=== PATIENT | female | born 1965 | race Caucasian/White ===

== ENCOUNTER 2020-06-05 10:13 | Emergency (ER) | payer SELFPAY ==
[~2020-06-05] VITALS: Ht 149 cm; Wt 84.0 kg
[2020-06-05] MEDS ORDERED: amLODIPine 5 MG (NORVASC) TAB PO ONE (10:30)
[2020-06-05 10:49] LABS: BILIRUBIN,URINE NEGATIVE (NEGATIVE); CLARITY,URINE CLEAR; COLOR,URINE YELLOW; GLUCOSE, URINE (UA) NEGATIVE (NEGATIVE); KETONES,URINE NEGATIVE (NEGATIVE); LEUKOCYTE ESTERASE ,URINE NEGATIVE (NEGATIVE); NITRITE,URINE NEGATIVE (NEGATIVE); PROTEIN,URINE NEGATIVE (NEGATIVE)
[2020-06-05 10:56] LABS: BACTERIA,URINE TRACE /HPF; SQUAMOUS EPITHELIAL CELL,UR RARE /HPF
[2020-06-05 11:08] LABS: BASOPHILS % (AUTO) 0 % (0-10); EOSINOPHILS # (AUTO) 0.1 10^3/uL (0.0-0.3); EOSINOPHILS % (AUTO) 1 % (0-10); HEMATOCRIT 44 % (35-52); HEMOGLOBIN 14.5 g/dL (11.5-16.0); LYMPHOCYTES # (AUTO) 1.2 10^3/uL (1.0-4.0); LYMPHOCYTES % (AUTO) 17 % (12-44); MEAN CORPUSCULAR HEMOGLOBIN 30 pg (25-34); MEAN CORPUSCULAR HGB CONC 33 g/dL (32-36); MEAN CORPUSCULAR VOLUME 90 fL (80-99); MEAN PLATELET VOLUME 9.3 fL (9.0-12.2); MONOCYTES # (AUTO) 0.4 10^3/uL (0.0-1.0); MONOCYTES % (AUTO) 5 % (0-12); NEUTROPHILS # (AUTO) 5.5 10^3/uL (1.8-7.8); NEUTROPHILS % (AUTO) 77 % (42-75); PLATELET COUNT 195 10^3/uL (130-400); WHITE BLOOD COUNT 7.1 10^3/uL (4.3-11.0)
--- NOTE | 2020-06-05 11:13 | ED General ---
General Chief Complaint: Cardiac/General Problems Stated Complaint: NOT FEELING WELL Nursing Triage Note: ARRIVED VIA EMS FROM HOME WITH COMPLAINTS OF HYPERTENSION AND ANXIETY Nursing Sepsis Screen: No Definite Risk Source of Information: Patient, EMS Exam Limitations: No Limitations History of Present Illness Date Seen by Provider: Jun 05, 2020 Time Seen by Provider: 10:20 Initial Comments Here with report of a variety of complaints but mostly related to blood pressure elevated and anxiousness. Comes from home. Called EMS with feelings of jitteriness and not feeling well. This has been going on over the last week. Has known hypertension and was on medicine but ran out of that after she moved here 6 months ago. She started seeing [facility] and was started on an unknown medicine that also made her feel bad so she did not take that. She has another appointment but has not restarted a new medicine. Blood pressure was elevated. Denies chest pain or breathing problems other than when she is anxious she states that she is breathing a little faster. Denies nausea, vomiting, diarrhea or dysuria. Timing/Duration: 1 Week, Changing Over Time Severity: Moderate Associated Systoms: No Cough, No Fever/Chills, No Nausea/Vomiting, No Weakness Allergies and Home Medications Allergies Coded Allergies: oxycodone (Verified Allergy, Unknown, 06/05/20) topiramate (Verified Allergy, Unknown, 06/05/20) Patient Home Medication List Home Medication List Reviewed: Yes Review of Systems Review of Systems Constitutional: see HPI; No chills, No fever EENTM: No nose congestion, No throat pain Respiratory: see HPI; No cough, No wheezing Cardiovascular: No chest pain, No edema Gastrointestinal: No abdominal pain, No nausea, No vomiting Genitourinary: no symptoms reported Musculoskeletal: no symptoms reported Psychiatric/Neurological: Anxiety; Denies Headache All Other Systems Reviewed Negative Unless Noted: Yes Past Kuoezfl-Wqtobq-Noompx Hx Past Med/Social Hx: Reviewed Nursing Past Med/Soc Hx Patient Social History Alcohol Use: Denies Use Recreational Drug Use: No Smoking Status: Former Smoker Recent Foreign Travel: No Contact w/Someone Who Travel: No Recent Infectious Disease Expo: No Recent Hopitalizations: No Seasonal Allergies Seasonal Allergies: No Past Medical History Surgeries: Yes Abdominal, Hysterectomy, Orthopedic Respiratory: No Cardiac: Yes Hypertension Neurological: No Genitourinary: No Gastrointestinal: No Musculoskeletal: No Endocrine: No HEENT: No Cancer: No Psychosocial: No Integumentary: No Blood Disorders: No Family Medical History Reviewed Nursing Family Hx Physical Exam Vital Signs Vital Signs - First Documented 06/05/20 10:15 Temp 36.3 Pulse 90 Resp 16 B/P (MAP) 205/109 (141) Capillary Refill : Less Than 3 Seconds Height, Weight, BMI Height: '" Weight: lbs. oz. kg; 37.00 BMI Method: General Appearance: No Apparent Distress, WD/WN HEENT: PERRL/EOMI, Pharynx Normal Neck: Non Tender, Supple Respiratory: Lungs Clear, Normal Breath Sounds Cardiovascular: Regular Rate, Rhythm, No Murmur Gastrointestinal: Non Tender, Soft Back: Normal Inspection, No CVA Tenderness, No Vertebral Tenderness Extremity: Normal Range of Motion, Non Tender Neurologic/Psychiatric: Alert, Oriented x3 Skin: Normal Color, Warm/Dry Progress/Results/Core Measures Suspected Sepsis Recent Fever Within 48 Hours: No Infection Criteria Present: None New/Unexplained Altered Menta: No Sepsis Screen: No Definite Risk SIRS Temperature: Pulse: 90 Respiratory Rate: 16 Laboratory Tests 06/05/20 11:04: White Blood Count 7.1 Blood Pressure 205 /109 Mean: 141 Laboratory Tests 06/05/20 11:04: Creatinine 0.81, Platelet Count 195, Total Bilirubin 0.3 Results/Orders Lab Results Laboratory Tests Test 06/05/20 10:43 06/05/20 11:04 Range/Units Urine Color YELLOW Urine Clarity CLEAR Urine pH 6.0 5-9 Urine Specific [place] 1.010 L 1.016-1.022 Urine Protein NEGATIVE NEGATIVE Urine Glucose (UA) NEGATIVE NEGATIVE Urine Ketones NEGATIVE NEGATIVE Urine Nitrite NEGATIVE NEGATIVE Urine Bilirubin NEGATIVE NEGATIVE Urine Urobilinogen 0.2 < = 1.0 MG/DL Urine Leukocyte Esterase NEGATIVE NEGATIVE Urine RBC (Auto) NEGATIVE NEGATIVE Urine RBC NONE /HPF Urine WBC NONE /HPF Urine Squamous Epithelial Cells RARE /HPF Urine Crystals NONE /LPF Urine Bacteria TRACE /HPF Urine Casts NONE /LPF Urine Mucus NEGATIVE /LPF Urine Culture Indicated NO White Blood Count 7.1 4.3-11.0 10^3/uL Red Blood Count 4.90 3.80-5.11 10^6/uL Hemoglobin 14.5 11.5-16.0 g/dL Hematocrit 44 35-52 % Mean Corpuscular Volume 90 80-99 fL Mean Corpuscular Hemoglobin 30 25-34 pg Mean Corpuscular Hemoglobin Concent 33 32-36 g/dL Red Cell Distribution Width 13.3 10.0-14.5 % Platelet Count 195 130-400 10^3/uL Mean Platelet Volume 9.3 9.0-12.2 fL Immature Granulocyte % (Auto) 0 % Neutrophils (%) (Auto) 77 H 42-75 % Lymphocytes (%) (Auto) 17 12-44 % Monocytes (%) (Auto) 5 0-12 % Eosinophils (%) (Auto) 1 0-10 % Basophils (%) (Auto) 0 0-10 % Neutrophils # (Auto) 5.5 1.8-7.8 10^3/uL Lymphocytes # (Auto) 1.2 1.0-4.0 10^3/uL Monocytes # (Auto) 0.4 0.0-1.0 10^3/uL Eosinophils # (Auto) 0.1 0.0-0.3 10^3/uL Basophils # (Auto) 0.0 0.0-0.1 10^3/uL Immature Granulocyte # (Auto) 0.0 0.0-0.1 10^3/uL Sodium Level 142 135-145 MMOL/L Potassium Level 4.3 3.6-5.0 MMOL/L Chloride Level 107 98-107 MMOL/L Carbon Dioxide Level 24 21-32 MMOL/L Anion Gap 11 5-14 MMOL/L Blood Urea Nitrogen 13 7-18 MG/DL Creatinine 0.81 0.60-1.30 MG/DL Estimat Glomerular Filtration Rate > 60 BUN/Creatinine Ratio 16 Glucose Level 104 70-105 MG/DL Calcium Level 9.4 8.5-10.1 MG/DL Corrected Calcium 9.3 8.5-10.1 MG/DL Total Bilirubin 0.3 0.1-1.0 MG/DL Aspartate Amino Transf (AST/SGOT) 15 5-34 U/L Alanine Aminotransferase (ALT/SGPT) 21 0-55 U/L Alkaline Phosphatase 93 40-136 U/L C-Reactive Protein High Sensitivity 0.11 0.00-0.50 MG/DL Total Protein 6.9 6.4-8.2 GM/DL Albumin 4.1 3.2-4.5 GM/DL My Orders Orders - JULY LANGLEY MD Cbc With Automated Diff (06/05/20 10:26) Comprehensive Metabolic Panel (06/05/20 10:26) Hs C Reactive Protein (06/05/20 10:26) Ua Culture If Indicated (06/05/20 10:26) Ekg Tracing (06/05/20 10:26) Amlodipine Tablet (Norvasc Tablet) (06/05/20 10:30) Medications Given in ED Current Medications Medications Dose Ordered Sig/Nani Route Start Time Stop Time Status Last Admin Dose Admin Amlodipine Besylate 10 mg ONCE ONCE PO 06/05/20 10:30 06/05/20 10:31 DC 06/05/20 10:32 10 MG Vital Signs/I&O 06/05/20 10:15 Temp 36.3 Pulse 90 Resp 16 B/P (MAP) 205/109 (141) Capillary Refill : Less Than 3 Seconds Blood Pressure Mean: 141 Progress Note : Progress Note Seen and evaluated. Amlodipine 10 mg p.o., labs and EKG ordered. Monitor patient. 1214: Blood pressure 150s over 90s and patient feeling much better. No significant abnormality on labs. Discharged home with return precautions. Patient verbalized understanding of instructions and agreement with plan. ECG Initial ECG Impression Date: Jun 05, 2020 Initial ECG Impression Time: 10:34 Initial ECG Rate: 85 Initial ECG Rhythm: Normal Sinus Comment Sinus rhythm with left atrial abnormality. No evidence of ST elevation TN. Normal axis. No previous available for comparison. Interpreted by me. Departure Impression Primary Impression: Hypertension, uncontrolled Disposition: 01 HOME, SELF-CARE Condition: Improved Departure-Patient Inst. Decision time for Depature: 12:15 Patient Instructions: High Blood Pressure (DC) Add. Discharge Instructions: All discharge instructions reviewed with patient and/or family. Voiced understanding. Take medications as directed. Follow-up with your doctor in a few days for recheck. Return for worse pain, fever, vomiting, weakness, breathing problems or other concerns as needed. I have written you a 1 month supply of the medication that you may take but you will need to discuss this with your doctor to determine further blood pressure medication regimen. Scripts Amlodipine Besylate (Amlodipine Besylate) 10 Mg Tablet 10 MG PO DAILY for 30 Days, #30 TAB 0 Refills Prov: JULY LANGLEY MD 06/05/20 Copy Copies To 1: TAYA GUILLERMO MD, TIMOTHY D MD Jun 05, 2020 11:13
[2020-06-05 11:27] LABS: ALBUMIN 4.1 GM/DL (3.2-4.5); CHLORIDE 107 MMOL/L (98-107); POTASSIUM 4.3 MMOL/L (3.6-5.0); SODIUM 142 MMOL/L (135-145)
[2020-06-05 11:28] LABS: CALCIUM 9.4 MG/DL (8.5-10.1)
[2020-06-05 11:29] LABS: GLUCOSE 104 MG/DL (70-105)
[2020-06-05 11:30] LABS: TOTAL PROTEIN 6.9 GM/DL (6.4-8.2)
[2020-06-05 11:31] LABS: BILIRUBIN,TOTAL 0.3 MG/DL (0.1-1.0); CARBON DIOXIDE 24 MMOL/L (21-32)
[2020-06-05 11:33] LABS: ALKALINE PHOSPHATASE 93 U/L (40-136); CREATININE SERUM 0.81 MG/DL (0.60-1.30); GFR ESTIMATED > 60
[2020-06-05 11:34] LABS: BUN/CREATININE RATIO 16
[2020-06-05 11:36] LABS: ALANINE AMINOTRANSFERASE 21 U/L (0-55)
[2020-06-05] MEDS ORDERED: AMLO-251 PO (12:17)
[2020-06-05 12:24] VITALS: BP 159/93
== END 2020-06-05 12:24 | disposition home or self-care (01) ==
LOC: ER 10:16
DX: I10 Essential (primary) hypertension (principal); F41.9 Anxiety disorder, unspecified; Z87.891 Personal history of nicotine dependence; Z88.5 Allergy status to narcotic agent; Z88.8 Allergy status to other drugs, medicaments and biological substances
CPT/HCPCS: 36415; 80053; 81000; 85025; 86141

== ENCOUNTER 2021-03-06 08:20 | Emergency (ER) | payer SELFPAY ==
[~2021-03-06] VITALS: Ht 149 cm; Wt 88.4 kg
[~2021-03-06 08:20] MED LIST: AMLO-251 PO
--- OUTSIDE RECORDS SUMMARY | 2021-03-06 08:25 | XMS REPORT | Clinical Summary ---
Author Author [facility] Organization [facility] Address Unknown Phone Unavailable Care Team Providers Care Baker Pastry Name Role Phone Alexandria Farmer MD PCP Allergies Comments Active Allergy Reactions Severity Noted Date Topiramate Itching Low 01/31/2018 Medications End Date Status Medication Sig Dispensed Refills Start Date Active phentermine (ADIPEX-P) Take 1 tablet 30 tablet 0 0 37.5 mg tablet (37.5 mg 9 total) by mouth every morning before breakfast. Active multivit/iron/FA/K/herb Take by 0 no.244 (ALIVE WOMEN'S mouth. ENERGY ORAL) Active chlorthalidone (HYGROTON) Take 1 tablet 90 tablet 1 25 MG tablet (25 mg total) 9 by mouth daily. Active buPROPion (WELLBUTRIN XL) Take 1 tablet 90 tablet 0 150 MG XL 24 hr (150 mg 9 tabletIndications: major total) by depressive disorder mouth every morning. Active potassium chloride Take 1 tablet 90 tablet 3 04/08 (K-DUR,KLOR-CON) 20 MEQ (20 mEq 9 tablet total) by mouth daily. Active aspirin/caffeine (JOSE Take by 0 BACK AND BODY ORAL) mouth. Active Problems Problem Noted Date Essential hypertension 03/29/2019 Last Assessment & Plan: Formatting of this note might be differ ent from the original. Not controlled Recheck was also abnormal Start chlorthalidone Pure hypercholesterolemia 03/26/2018 Degenerative cervical disc 02/02/2018 Overview: Formatting of this note might be differ ent from the original. MRI 10/2017 C5-7 Class 3 severe obesity due to excess calories without serious comorbidity 01/31/2018 in adult Overview: Formatting of this note might be differ ent from the original. Tried phenteramine and topamax L ast Assessment & Plan: Formatting of this note might be differ ent from the original. Will restart wellbutrin Counseled on TRF Thyroid disease 01/31/2018 Overview: Formatting of this note might be differ ent from the original. Last TSH 3 11/2017 L ast Assessment & Plan: Formatting of this note might be differ ent from the original. Obtain previous labs and recheck Myalgia 01/31/2018 Last Assessment & Plan: Formatting of this note might be differ ent from the original. Will hopefully find some relief with lo sing weight and with the naltrexone Family History Medical History Relation Name Comments Hypertension Father Dementia Mother Diabetes Paternal Aunt Relation Name Status Comments Daughter Alive Father Alive Mother Alive Paternal Aunt Son twins Alive Son twins Alive Social History Date Tobacco Use Types Packs/Day Years Used Quit: 2005 Former Smoker Smokeless Tobacco: Never Used Comments Alcohol Use Standard Drinks/Week Yes 2 (1 standard drink = 0.6 o z pure alcohol) Sex Assigned at Date Recorded Not on file Last Filed Vital Signs Reading Time Taken Comments Vital Sign 154/99 04/12/2019 1:46 PM CDT Blood Pressure 83 04/12/2019 12:19 PM CDT Pulse 37.1 C (98.7 F) 04/12/2019 12:19 PM CDT Temperature 16 04/12/2019 12:19 PM CDT Respiratory Rate 97% 04/12/2019 1:02 PM CDT Oxygen Saturation - - Inhaled Oxygen Concentration 92.5 kg (204 lb) 04/12/2019 12:19 PM CDT Weight 149.9 cm (4' 11") 04/12/2019 12:19 PM CDT Height 41.2 04/12/2019 12:19 PM CDT Body Mass Index Plan of Treatment Health Maintenance Due Date Last Done Comments Td/Tdap# 1965 COVID-19 Vaccine (1) 1978 Colorectal Screening via 02/05/2016 Colonoscopy Zoster Vaccine# (1 of 2) 02/05/2016 Mammogram Screening 11/11/2019 11/10/2017 Influenza Vaccine (#1) 2021 Pneumococcal Vaccine: Aged Out No longer eligib le based on patient's age to Pediatrics (0 to 5 Years) complete this topic and At-Risk Patients (6 to 64 Years) Results Not on filefrom Last 3 Months Insurance Type Payer Benefit Subscriber ID Effective Phone Address Plan / Dates Group [employer] [id number] borja 12 Arabella Rain Personal/F Self [id number] [place] (Home) [place] [id number] 12 Arabella Rain Personal/F Self [address] [place] (Home) [place] [id number] 12 Advance Directives For more information, please contact: [phone] Patient Marketing Mgr Explanation Type Date Recorded Advance Directives and Living Will Power of Broadcast Chief Engineer Health Care Directive
--- OUTSIDE RECORDS SUMMARY | 2021-03-06 08:25 | XMS REPORT | Clinical Summary ---
Author Author [facility] Organization [facility] Address Unknown Phone Unavailable Care Team Providers Care Drafter Commercial Name Role Phone PCP Unavailable Source Comments [facility] (Labor and Delivery) documents do not appear in the [facility] Allergies Not on File Medications Please verify current medications with patient. Not on file Active Problems Not on file Social History Date Tobacco Use Types Packs/Day Years Used Never Assessed Sex Assigned at Date Recorded Not on file Last Filed Vital Signs Not on file Plan of Treatment Health Maintenance Due Date Last Done Comments CT Colonography 1966 Colon cancer: DNA-based 1966 stool test (Cologuard) HPV/Cotest 1966 Sigmoidoscopy 1966 gFOBT or FIT 1966 COVID-19 Vaccine (1) 1978 Cervical Cancer Screening 1987 Pap Smear 1987 Colonoscopy 02/05/2016 Colorectal Cancer 02/05/2016 Screening Mammogram 02/05/2016 Influenza Vaccine (#1) 2021 Pneumococcal Vaccine: 65+ 2031 Years (1 of 1 - PPSV23) HPV Vaccine Aged Out No longer eligible based on patient's age to complete this topic Pneumococcal Vaccine: Aged Out No longer eligib le based on patient's age to Pediatrics (0 to 5 Years) complete this topic and At-Risk Patients (6 to 64 Years) Results Not on filefrom Last 3 Months
--- NOTE | 2021-03-06 08:37 | ED General ---
General Chief Complaint: Dizziness/Syncope Stated Complaint: DIZZINESS,LOC Source of Information: Patient Exam Limitations: No Limitations History of Present Illness Date Seen by Provider: Mar 06, 2021 Time Seen by Provider: 08:45 Initial Comments Patient is a 56-year-old female who presents to the emergency department with a chief complaint of dizziness and a syncopal episode this morning. Patient states she got up, got in the shower and felt a little bit "dizzy". She states she got out of the shower and sat down on the couch, she was getting up to walk into the bedroom when the next thing she knew she states she was waking up on the floor. Her significant other is at the bedside and states that she did not tremor or shake, she was not confused after the syncopal episode. She was able to get up and continue to get dressed and come into the emergency room for further evaluation. Patient states that she might of felt a little bit of palpitations just prior to her syncopal event. She did not have a headache. She was not nauseous. She has not had episodes similar to this in the past. No recent illnesses such as fevers, chills, cough or congestion. No nausea vomiting or diarrheal illness. She is status post hysterectomy. Takes medications for blood pressure. Is not a diabetic. States that she feels generally "weak" at the moment. Otherwise back to normal. Covid vaccinated no sick contacts. All other review of systems reviewed and negative except as stated. Timing/Duration: 1 Hour Associated Systoms: Syncope Allergies and Home Medications Allergies Coded Allergies: oxycodone (Verified Allergy, Unknown, 06/05/20) topiramate (Verified Allergy, Unknown, 06/05/20) Patient Home Medication List Home Medication List Reviewed: Yes Amlodipine Besylate (Amlodipine Besylate) 10 Mg Tablet, 10 MG PO DAILY Prescribed by: JULY LANGLEY on 06/05/20 1217 Review of Systems Review of Systems Constitutional: see HPI, malaise EENTM: no symptoms reported Respiratory: no symptoms reported Gastrointestinal: no symptoms reported Genitourinary: no symptoms reported : No Musculoskeletal: no symptoms reported Skin: no symptoms reported Psychiatric/Neurological: Other (Dizziness,) All Other Systems Reviewed Negative Unless Noted: Yes Past Mjbaqso-Zvnusu-Zwauvd Hx Seasonal Allergies Seasonal Allergies: No Past Medical History Surgeries: Yes Abdominal, Hysterectomy, Orthopedic Respiratory: No Cardiac: Yes Hypertension Neurological: No Genitourinary: No Gastrointestinal: No Musculoskeletal: No Endocrine: No HEENT: No Cancer: No Psychosocial: No Integumentary: No Blood Disorders: No Physical Exam Vital Signs Vital Signs - First Documented 03/06/21 08:36 Temp 36.8 Pulse 75 Resp 18 B/P (MAP) 153/92 (112) Pulse Ox 98 Capillary Refill : Height, Weight, BMI Height: '" Weight: lbs. oz. kg; 37.00 BMI Method: General Appearance: No Apparent Distress, WD/WN Eyes: Bilateral Eye Normal Inspection, Bilateral Eye PERRL, Bilateral Eye EOMI, Bilateral Eye Other (Patient has nystagmus at all extremes of visual gaze except for inferiorly.) HEENT: TMs Normal (TMs occluded by cerumen bilaterally), Normal ENT Inspection, Pharynx Normal Neck: Normal Inspection, Non Tender, Supple Respiratory: Lungs Clear, Normal Breath Sounds, No Accessory Muscle Use, No Respiratory Distress Cardiovascular: Regular Rate, Rhythm, Normal Peripheral Pulses Gastrointestinal: Non Tender Extremity: Normal Capillary Refill, Normal Inspection, Normal Range of Motion, Non Tender, No Calf Tenderness, No Pedal Edema Neurologic/Psychiatric: Alert, Oriented x3, No Motor/Sensory Deficits, Normal Mood/Affect, cardiovascular physician assistant II-XII Norm as Tested Skin: Normal Color, Warm/Dry Progress/Results/Core Measures Suspected Sepsis SIRS Temperature: Pulse: Respiratory Rate: Blood Pressure / Mean: Results/Orders Lab Results Laboratory Tests Test 03/06/21 08:38 Range/Units Glucometer 110 70-110 MG/DL Vital Signs/I&O 03/06/21 08:36 Temp 36.8 Pulse 75 Resp 18 B/P (MAP) 153/92 (112) Pulse Ox 98 Capillary Refill : ECG Initial ECG Impression Date: Mar 06, 2021 Initial ECG Impression Time: 08:35 Initial ECG Rate: 82 Initial ECG Rhythm: Normal Sinus Initial ECG Intervals: Normal Initial ECG Impression: Normal Departure Impression Primary Impression: Syncope Qualified Codes: R55 - Syncope and collapse Additional Impression: Hypertension Qualified Codes: I10 - Essential (primary) hypertension Disposition: 01 HOME, SELF-CARE Condition: Stable Departure-Patient Inst. Decision time for Depature: 08:59 Referrals: TAYA GUILLERMO MD (PCP/Family) Primary Care Physician Patient Instructions: Syncope (Fainting) (DC) Add. Discharge Instructions: Continue to take your daily blood pressure medicines as prescribed Drink plenty of fluids to stay well-hydrated. Monitor yourself for any further symptoms. Follow-up with your primary care doctor as scheduled. Come back to the emergency room for any new, concerning or emergent complaints. MARBIN THOMAS MD Mar 06, 2021 08:37
[2021-03-06 08:59] LABS: BASOPHILS # (AUTO) 0.1 10^3/uL (0.0-0.1); BASOPHILS % (AUTO) 1 % (0-10); EOSINOPHILS # (AUTO) 0.2 10^3/uL (0.0-0.3); EOSINOPHILS % (AUTO) 3 % (0-10); HEMATOCRIT 44 % (35-52); LYMPHOCYTES # (AUTO) 2.1 10^3/uL (1.0-4.0); LYMPHOCYTES % (AUTO) 29 % (12-44); MEAN CORPUSCULAR HEMOGLOBIN 31 pg (25-34); MEAN CORPUSCULAR HGB CONC 34 g/dL (32-36); MEAN CORPUSCULAR VOLUME 92 fL (80-99); MEAN PLATELET VOLUME 9.3 fL (9.0-12.2); MONOCYTES # (AUTO) 0.6 10^3/uL (0.0-1.0); MONOCYTES % (AUTO) 8 % (0-12); NEUTROPHILS # (AUTO) 4.4 10^3/uL (1.8-7.8); NEUTROPHILS % (AUTO) 60 % (42-75); PLATELET COUNT 237 10^3/uL (130-400); WHITE BLOOD COUNT 7.3 10^3/uL (4.3-11.0)
[2021-03-06 09:05] LABS: CALCIUM 9.8 MG/DL (8.5-10.1)
[2021-03-06 09:09] LABS: CREATININE SERUM 0.81 MG/DL (0.60-1.30)
[2021-03-06 09:54] VITALS: BP 150/91
== END 2021-03-06 09:53 | disposition home or self-care (01) ==
LOC: EDUNIT# 08:20 → ER 08:22
DX: R55 Syncope and collapse (principal); I10 Essential (primary) hypertension
CPT/HCPCS: 36415; 80048; 82947; 85025; 93005

== ENCOUNTER 2022-01-29 16:40 | Emergency (ER) | payer SELFPAY ==
[~2022-01-29] VITALS: Ht 150 cm; Wt 95.0 kg
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
[2022-01-29] MEDS ORDERED: KETOROLAC 30 MG/ML VIAL IM ONE (17:15)
--- NOTE | 2022-01-29 17:24 | Diagnostic Imaging Report ---
INDICATION: RIGHT ANTERIOR RIB PAIN BELOW THE BREAST, POST FALL. TECHNIQUE: Two view chest 5:23 PM CORRELATION STUDY: None FINDINGS: The heart size, mediastinal configuration and pulmonary vasculature are within normal limits. Calcified granuloma left hilum as well as anterior medial mid left lung. The lungs are clear with no consolidating infiltrate. There is no significant pleural effusion or pneumothorax. No definitive acute displaced fracture. IMPRESSION: 1. Negative for acute abnormality of the chest. Dictated by: Dictated on workstation # [id number]
[2022-01-29] MEDS ORDERED: DICL75TA2 PO (17:44)
[2022-01-29 17:56] VITALS: BP 127/80
== END 2022-01-29 17:56 | disposition home or self-care (01) ==
LOC: EDUNIT# 16:40 → ER 16:43
DX: S29.9XXA Unspecified injury of thorax, initial encounter (principal); V28.4XXA Motorcycle driver injured in noncollision transport accident in traffic accident, initial encounter; Y92.410 Unspecified street and highway as the place of occurrence of the external cause
CPT/HCPCS: 71046

== ENCOUNTER 2023-03-22 20:03 | Emergency (ER) | payer SELFPAY ==
[~2023-03-22] VITALS: Ht 150 cm; Wt 95.0 kg
[~2023-03-22 20:03] MED LIST changes: +DICL75TA2 PO
[2023-03-22 20:12] VITALS: BP 144/91
--- NOTE | 2023-03-22 20:35 | ED Lower Extremity ---
General Chief Complaint: Lower Extremity Stated Complaint: RT KNEE PAIN Nursing Triage Note: REPORTS TWISTING RIGHT KNEE 03/21/23 HEARING A "POP" WHILE MOVING FURNITURE. C/O RIGHT ANTERIOR KNEE PAIN. Source: patient Exam Limitations: no limitations (JANKI CALABRESE) History of Present Illness Date Seen by Provider: Mar 22, 2023 Time Seen by Provider: 20:33 Initial Comments Patient is a 58-year-old female presents ED with right knee pain. She states yesterday evening she caught her knee in between her dresser and bed. She felt a pop of the right knee. Since then she has had some instability feels like the right knee wants to give out. Dull achy pain worse with any type of movement specially going up or down. She has been using a knee brace for some improvement. Denies taking thing for pain. No history of previous injury. She denies any distal numbness and tingling, obvious swelling bruising redness, thigh pain. (JANKI CALABRESE) Allergies and Home Medications Allergies Coded Allergies: oxycodone (Verified Allergy, Unknown, 06/05/20) topiramate (Verified Allergy, Unknown, 06/05/20) Patient Home Medication List Home Medication List Reviewed: Yes (JANKI CALABRESE) Amlodipine Besylate (Amlodipine Besylate) 10 Mg Tablet, 10 MG PO DAILY Prescribed by: JULY LANGLEY on 06/05/20 1217 Diclofenac Sodium (Diclofenac Sodium) 75 Mg Tablet.dr, 75 MG PO BID Prescribed by: Chente Bianchi on 01/29/22 9334 Review of Systems Constitutional: No chills, No diaphoresis EENTM: No ear pain, No blurred vision, No double vision Respiratory: No cough, No dyspnea on exertion Cardiovascular: No chest pain Gastrointestinal: No abdominal pain, No diarrhea, No nausea, No vomiting Genitourinary: No decreased output, No discharge Musculoskeletal: No back pain; joint pain, muscle pain Skin: No change in color, No change in hair/nails (JANKI CALABRESE) All Other Systems Reviewed Negative Unless Noted: Yes (JANKI CALABRESE) Past [id number]-Fgqpeu Hx Patient Social History Tobacco Use?: No Smoking Status: Former Smoker Substance use?: No Alcohol Use?: No Pt feels they are or have been: No (JANKI CALABRESE) Immunizations Up To Date First/Initial COVID19 Vaccinat: AUGUST 2020 Second COVID19 Vaccination Joe: AUGUST 2020 Third COVID19 Vaccination Date: AUGUST 2020 (JANKI CALABRESE) Seasonal Allergies Seasonal Allergies: No (JANKI CALABRESE) Past Medical History Surgery/Hospitalization HX: PMH: HTN, HLD, HYSTERECTOMY, OTHRO Surgeries: Yes Abdominal, Hysterectomy, Orthopedic Respiratory: No Cardiac: Yes Hypertension Neurological: No Genitourinary: No Gastrointestinal: No Musculoskeletal: No Endocrine: No HEENT: No Cancer: No Psychosocial: No Integumentary: No Blood Disorders: No (JANKI CALABRESE) Physical Exam Vital Signs Vital Signs - First Documented 03/22/23 20:12 Temp 36.8 Pulse 78 Resp 16 B/P (MAP) 144/91 (108) Pulse Ox 95 O2 Delivery Room Air (TEETEE,ALICIA K DO) Vital Signs Capillary Refill : Less Than 3 Seconds (JANKI CALABRESE) Height, Weight, BMI Height: '" Weight: lbs. oz. kg; 42.00 BMI Method: General Appearance: WD/WN, no apparent distress HEENT: PERRL/EOMI, normal ENT inspection, TMs normal, pharynx normal Neck: non-tender, full range of motion, supple Cardiovascular: regular rate, rhythm, no edema, no gallop, no JVD Respiratory: chest non-tender, lungs clear, normal breath sounds, no respiratory distress, no accessory muscle use Gastrointestinal: normal bowel sounds, non tender, soft, no organomegaly Back: normal inspection, no CVA tenderness Hips: bilateral hip non-tender, bilateral hip normal inspection, bilateral hip normal range of motion Knees: right knee other (Pain discomfort with anterior drawer test and Khadar's test. No pain with valgus or varus stress or laxity. Negative posterior drawer test. No obvious laxity with anterior drawer test) Ankles: bilateral ankle non-tender, bilateral ankle normal inspection, bilateral ankle normal range of motion Feet: bilateral foot non-tender, bilateral foot normal inspection, bilateral foot normal range of motion Skin: normal color, warm/dry (JANKI CALABRESE) Progress/Results/Core Measures Results/Orders Vital Signs/I&O 03/22/23 20:12 Temp 36.8 Pulse 78 Resp 16 B/P (MAP) 144/91 (108) Pulse Ox 95 O2 Delivery Room Air (ALICIA KINGSLEY DO) Blood Pressure Mean: 108 Departure Communication (PCP) Injury to right knee. Feels like the right knee wants to give out. Twisted and turned and felt a pop in the right knee. Exam concerning for ligament injury versus meniscus injury. Obtained an x-ray which did not show any acute fracture. Degenerative changes noted. No large joint effusion. At this time recommend rest, ice anti-inflammatories. Knee brace for comfort. Suggest follow-up with your primary care physician for further evaluation. Would likely benefit with physical therapy. may need Further evaluation with MRI. She is able to ambulate (JANKI CALABRESE) Impression Primary Impression: Sprain of knee Disposition: HOME, SELF-CARE Condition: Stable Departure-Patient Inst. Decision time for Depature: 21:15 (JANKI CALABRESE) Referrals: VIVI CARO MD, DAVID M PA (PCP) Primary Care Physician Patient Instructions: Knee Sprain ED Add. Discharge Instructions: Recommend ice, anti-inflammatories, rest range of motion exercises. Follow-up your primary care physician for further evaluation. Provided orthopedic follow- up. Knee brace for comfort All discharge instructions reviewed with patient and/or family. Voiced understanding. ATTENDING PHYSICIAN NOTE: I WAS PHYSICALLY PRESENT ER PHYSICIAN, BUT I WAS NOT INVOLVED IN ANY DECISION MAKING OR ANY CARE OF THIS PATIENT, AND I AM NOT COLLABORATING PHYSICIAN. (ALICIA KINGSLEY DO) JANKI CALABRESE Mar 22, 2023 20:35 ALICIA KINGSLEY DO Mar 23, 2023 01:47
--- NOTE | 2023-03-22 21:11 | Diagnostic Imaging Report ---
CLINICAL INDICATION: Patient with right knee pain. EXAM: X-ray right knee, 3 views. COMPARISON: None. FINDINGS: There is no acute fracture or dislocation. There is no knee effusion. There is hypertrophic patella spur at the quadriceps attachment. There is mild spurring involving the lateral compartment. IMPRESSION: There is degenerative disease of the right knee with no acute fracture. Dictated by: Dictated on workstation # [id number]
== END 2023-03-22 21:17 | disposition home or self-care (01) ==
LOC: EDUNIT# 20:03 → ER 20:06
DX: S83.91XA Sprain of unspecified site of right knee, initial encounter (principal); Z87.891 Personal history of nicotine dependence; X50.1XXA Overexertion from prolonged static or awkward postures, initial encounter
CPT/HCPCS: 73562